=== PATIENT | female | born 1935 | race Caucasian/White ===

== ENCOUNTER → 2016-04-30 | Outpatient (CLI) | payer OTHER ==
--- NOTE | 2016-04-30 11:28 | DIAGNOSTIC IMAGING REPORT ---
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 There is a more recent outside study dated 07/18/2015, but the file appears corrupt and crashes the operating system. CT DOSE: 301.42 mGy.cm TECHNIQUE: CT of the thorax was performed from the thoracic inlet to the lung bases. Images are reviewed in the axial, sagittal, and coronal planes. IV contrast was not administered for this examination. FINDINGS: Thyroid: Imaged portions of the thyroid gland are normal in appearance. Thoracic aorta: The thoracic aorta is normal in course and caliber, noting standard 3 vessel arch anatomy. Heart: The heart is enlarged with coronary calcifications Lungs and pleural spaces: There is a small right pleural effusion. There is postobstructive consolidation of the right lower lobe. There is a right lower lobe mass measuring 9.3 cm. Mediastinum: There is progressive mediastinal lymphadenopathy. There are conglomerate nodes within the right paratracheal region measuring 7.6 cm in diameter. There are pathologically enlarged lymph nodes within the prevascular space the largest of which measures 5 cm Alissa: There is a right hilar mass/adenopathy obstructing the right lower lobe bronchus. Axilla: Clear. Upper abdomen: There is an enlarging pathologic lymph node in the region the gastrohepatic ligament measuring 5.4 cm. 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 The study is correlated with a May 2011 study. The most recent study could not be reviewed as the image file appeared corrupt 2. Progressive mediastinal lymphadenopathy 3. Enlarging pathologic lymph node in the region the gastrohepatic ligament 4. Large mediastinal and hilar mass obstructing the right lower lobe bronchus 5. Postobstructive consolidative changes within the right lower lobe 6. 9.3 cm right lower lobe mass with rim calcification 7. Small right pleural effusion Electronically signed by: Gildardo Rodarte M.D. 04/30/2016 11:27 AM Dictated Date/Time: 04/30/2016 11:17 AM
== END | disposition home or self-care (01) ==
LOC: C.CTS 10:26
PROVIDERS: ATTEND Surgery
DX: C34.90 Malignant neoplasm of unspecified part of unspecified bronchus or lung (principal); R59.0 Localized enlarged lymph nodes; R91.8 Other nonspecific abnormal finding of lung field; J90 Pleural effusion, not elsewhere classified